=== PATIENT | male | born 1965 | race Caucasian/White ===

== ENCOUNTER 2018-07-09 10:50 | Outpatient (CLI) | payer OTHER ==
[2018-07-09] MEDS ORDERED: gadopentetate dimeglumine 7.5 MMOL/15 ML syringe ONE (16:59)
== END 2018-07-09 23:59 | disposition home or self-care (01) ==
LOC: RAD 10:50
PROVIDERS: ATTEND Emergency Medicine
DX: L89.153 Pressure ulcer of sacral region, stage 3 (principal); L03.312 Cellulitis of back [any part except buttock and flank]
CPT/HCPCS: 72197; A9579

== ENCOUNTER → 2018-09-28 | Outpatient (CLI) | payer OTHER | END | disposition home or self-care (01) | LOC: CARD DIAG 13:01 | PROVIDERS: ATTEND Specialist | DX: I08.0 Rheumatic disorders of both mitral and aortic valves (principal); R78.81 Bacteremia; I48.91 Unspecified atrial fibrillation | CPT/HCPCS: 93306 ==